=== PATIENT | female | born 2000 | race American Indian/Alaskan Native ===

== ENCOUNTER 2018-11-04 14:27 | Emergency (ER) | payer BC, MEDICAID ==
--- NOTE | 2018-11-04 15:40 | Emergency Department Report ---
Eye Injury/Foreign Body - HPI Duration: weeks Eye Location: Right Severity: Mild Tetanus Status: Up to Date Eye Symptoms: Eye Pain: No, Blurred Vision: No, Eye Redness: No, Grinding/Hammering Metal: No, Used Eye Protection: No, Contact Lens Use: No, Recalls Injury: No, Photophobia: No Other History: This is a 18-year-old female who presented to the complaining of right eyebrow/eyelid bleeding. Patient states she has been seeing a doctor for the past months as she had brow surgery. [facility] Patient states since then the bleeding intermittently in the site. The vision is not disturbed. Patient has no blurry vision problems ED Review of Systems ROS: Stated complaint: RIGHT EYEBROW IRRIATION Other details as noted in HPI Comment: All other systems reviewed and negative ED Past Medical Hx - Past Medical History Previous Medical History?: No - Surgical History Past Surgical History?: No - Social History Smoking Status: Never Smoker - Medications Home Medications: Home Medications Medication Instructions Recorded Confirmed Last Taken Type Clindamycin [Clindamycin CAP] 300 mg PO Q8H #15 cap 11/04/18 Unknown Rx Eye Injury Exam - Exam General: Vital signs noted. No distress. Alert and acting appropriately. GENERAL: Alert and oriented x3, no apparent distress, Normal Gait, atraumatic. HEAD: Head is normocephalic and a-traumatic. EYES: Extra ocular muscles are intact. Upper right eyebrow has a small suture seen through a small opening at the base of the eyebrow., Bleeding controlled. Minimal bleeding seen. Pupils are equal, round, and reactive to light and accommodation. SKIN: Warm and dry, No lesions, No ulceration or induration present. ED Course Vital Signs 11/04/18 14:31 Temperature 98.1 F Pulse Rate 100 H Blood Pressure 121/82 O2 Sat by Pulse 96 Oximetry ED Medical Decision Making - Medical Decision Making 18-year-old female who presents with healing wound to the right eyebrow. Discussed follow-up with the eye doctor that she currently sees. Wound looks like it's healing well just not healed all the way. Wound is not closed. Mildly open. White suture was seen in the opening of the wound. Discussed wound care with the patient. Vital signs are normal she is in no acute distress, vision is not affected or distorted. Critical care attestation.: If time is entered above; I have spent that time in minutes in the direct care of this critically ill patient, excluding procedure time. ED Disposition Clinical Impression: Scar of eyebrow, Open wound of eyebrow without complication Disposition: DC- TO HOME OR SELFCARE Is pt being admited?: No Does the pt Need Aspirin: No Condition: Stable Instructions: Acute Wound Care (ED) Additional Instructions: Make sure to follow up with the primary care physician as discussed. Take all your medications as you've been prescribed. If you have any worsening symptoms or develop new symptoms please return to ED immediately. Prescriptions: Clindamycin [Clindamycin CAP] 300 mg PO Q8H #15 cap Referrals: WILSON ROJAS MD [Staff Physician] - 3-5 Days Forms: Accompanied Note, Work/School Release Form(ED) Time of Disposition: 15:46
== END 2018-11-04 16:03 | disposition home or self-care (01) ==
LOC: ED 14:27
CPT/HCPCS: 99282